=== PATIENT | female | born 2000 | race Caucasian/White ===

== ENCOUNTER → 2022-07-03 10:46 | Outpatient (CLI) | payer BC, SELFPAY ==
--- NOTE | ~2022-07-03 | DEXA_ITS ---
Bone Density Report Name: PETERSON GONZALEZ Age: 21 Sex: Female Ethnicity: Pediatric Date of : 2000 Indication: Encounter for surveillance of injectable contraceptive. Referring Provider: Loni Valadez Study: Bone densitometry was performed. Exam Date: July 03, 2022 Accession number: [id number] Bone Density: Region BMD T-score Z-score Classification AP Spine (L1-L4) 1.104 0.9 Normal World Health Organization criteria for BMD impression classify patients as: Normal (T-score at or above -1.0), Osteopenia (T-score between -1.0 and -2.5), or Osteoporosis (T-score at or below -2.5). Previous Exams: Region Exam Age BMD T-score BMD Change BMD Change Date g/cm2 vs Baseline vs Previous AP Spine(L1-L4) 07/03/2022 21 1.104 0.9 -0.043* -0.025* 06/02/2019 18 1.129 -0.018 -0.018 04/25/2017 16 1.147 *Denotes significance at 95% confidence level, LSC for AP Spine = 0.022 g/cm2 Clinical Information Provided by Patient: Has rheumatoid arthritis Patient maximum height was 61 No regular weight bearing exercise Drinks caffeinated beverages Onset of menses at age 12 Premenopausal Number of children 0 Missed period for more than 6 months in a row Impression: Discussion: Follow-Up: Reported by: JEZ on 07/03/2022 11:06:00 AM. Reviewed, dictated and finalized at location Ariela SCHULTZ
== END ==
PROVIDERS: PCP Advanced Practice Midwife; Visit Provider Advanced Practice Midwife
DX: Z30.42 Encounter for surveillance of injectable contraceptive (principal)
CPT/HCPCS: 77080

== ENCOUNTER 2024-03-12 10:53 | Inpatient (IN) | payer BC, SELFPAY ==
[2024-03-12] VITALS (16 sets, daily range): BP systolic 94–138; BP diastolic 52–83; PULSE 78–125; RESP 14–19; TEMP 36.2–37.1; O2SAT 98–100
--- NOTE | ~2024-03-12 | CT_ITS ---
EXAMINATION: CT abdomen pelvis w con DATE: 03/12/2024 13:09 INDICATION: Right upper quadrant abdominal pain. Right flank pain. TECHNIQUE: Computed tomography (CT) of the abdomen and pelvis was performed without intravenous contr ast. Automated exposure control and iterative reconstruction technique were employed. The dose-length product was 267.20 mGy-cm. COMPARISON: None FINDINGS: Lung bases are clear. Heart size is normal. No pericardial or pleural effusion. Liver, gallbladder, s pleen, pancreas, bilateral adrenal glands and left kidney are normal. 3 mm stone at the proximal righ t ureter with mild right hydronephrosis. Decompressed bladder, anteverted uterus and bilateral adnexa are normal. Bowels including the appendix are normal. No free intraperitoneal gas or fluid. No patho logically enlarged abdominal or pelvic lymphadenopathy. Bones are unremarkable. IMPRESSION: 1. 3 mm possible right ureteral stone with mild right hydronephrosis. Reviewed, dictated and finalized at location A.
--- NOTE | ~2024-03-12 | XR_ITS ---
EXAMINATION: XR retrograde pyelo w/stent RT DATE: 03/12/2024 16:38 INDICATION: Right ureteral stone. TECHNIQUE: 42 intraoperative fluoroscopic views of the abdomen and pelvis were obtained. I was not pr esent. Fluoroscopy exposure time was 25 seconds. COMPARISON: CT abdomen and pelvis 03/12/2024 FINDINGS: The right-sided retrograde pyelogram demonstrates mild right hydronephrosis. The final imag es demonstrate a right internal ureteral stent in expected position. IMPRESSION: 1. Right internal ureteral stent in expected position. Reviewed, dictated and finalized at location A.
--- NOTE | 2024-03-12 12:18 | ED.ABDPAIN ---
HPI - Abdominal Pain General Chief Complaint: Abdominal Pain <SOHAN Green Last Filed: 03/12/24 12:22> Stated Complaint: right abd pain <SOHAN Green Last Filed: 03/12/24 12:22> Time Seen by Provider: 03/12/24 12:18 <SOHAN Green Last Filed: 03/12/24 12:22> Focused HPI: This is a 23-year-old female who presents to the ED with chief complaint of right upper quadrant right flank pain beginning last night. States that the pain worsened today. She works at a doctor's office and they recommended she come and get her gallbladder checked out. States that she has had nausea with a couple episodes of vomiting. Denies recent antibiotic use. Denies urinary symptoms, fevers, chills. GENERAL: Well-appearing, well-nourished, and in no acute distress. HEAD: Normocephalic, atraumatic. CHEST: Clear to auscultation. No respiratory distress. HEART: Regular rate and rhythm. ABD: Right flank pain and right upper quadrant tenderness appreciated, worse on the right flank. No peritoneal signs NEURO: Alert and oriented x3. Patient screened in triage and initial orders placed. Additional care and disposition to be based upon diagnostic testing and treatment. <SOHAN Green Last Filed: 03/12/24 12:22> Source: patient <SOHAN Green Last Filed: 03/12/24 12:22> Mode of arrival: ambulatory <SOHAN Green Last Filed: 03/12/24 12:22> Limitations: no limitations <SOHAN Green Last Filed: 03/12/24 12:22> Related Data Home Medications: Home Medications Medication Instructions Recorded Confirmed medroxyprogesterone 150 mg/mL 150 mg IM WEEKLY 03/12/24 03/12/24 intramuscular suspension <SOHAN Green Last Filed: 03/12/24 12:22> Allergies/Adverse Reactions: Allergies Allergy/AdvReac Type Severity Reaction Status Date / Time acetaminophen Allergy Swelling Verified 03/12/24 13:29 of Lip/Tongue/Throat azithromycin Allergy Swelling Verified 03/12/24 13:29 of Lip/Tongue/Throat hydrochlorothiazide Allergy Swelling Verified 03/12/24 13:29 of Lip/Tongue/Throat moxifloxacin [From Avelox] Allergy Swelling Verified 03/12/24 13:29 of Lip/Tongue/Throat oseltamivir [From Tamiflu] Allergy Swelling Verified 03/12/24 13:29 of Lip/Tongue/Throat Penicillins Allergy Swelling Verified 03/12/24 13:29 of Lip/Tongue/Throat <Lionel Cummings PA-C - Last Filed: 03/12/24 12:22> Review of Systems Review of Systems: All systems reviewed & are unremarkable except as noted in HPI and below <Lisandra Olivas MD - Last Filed: 03/12/24 19:49> [facility] Social History Social History: Social History Smoking packs per day: 0 Smoking cigarettes per day: 0.0 Smoking status: Current some day smoker Tobacco type: e-cigarettes/vaping Alcohol intake: current Drinks per week: 2 Substance use: never Do You Feel Safe in your Home?: Yes Lack of Transportation: No Lack of Food: Never True Current Housing: I Have Housing Concerned About Future Housing: No Difficulty Paying Gas/Electric Bills: No Difficulty Paying for Meds: No Currently Unemployed: No Education: Bachelor's Degree Difficulty w/ Childcare or Family Care: No Spiritual care concerns: No <Lionel Cummings PA-C - Last Filed: 03/12/24 12:22> Exam Narrative: EXAMINATION OF ORGAN SYSTEMS/BODY AREAS: Constitutional: Vital signs per nursing GENERAL:[No acute distress, non-toxic appearing.] HEAD: Normal with no signs of head trauma. EYES: EOMI, conjunctiva normal ENT: Hearing grossly intact LUNGS: Nonlabored breathing. HEART: Tachycardic ABD: Right CVA tenderness EXT: Normal range of motion SKIN: [No rashes or lesions.] NEURO: [Alert and oriented x 3. No gross focal sensory or strength deficits.] PSYCH: Normal affect <Lisandra Gray
[2024-03-12 12:34] LABS: BEDSIDEPREGUCG Negative
[2024-03-12 12:44] LABS: Basophils Percent Auto 0.2 % (0.2-1.2); Eosinophils Percent Auto 0.1 % (0-4.4); Hematocrit 45.8 % (37.0-47.0); Hemoglobin 15.4 g/dL (12.0-15.0); Immature Granulocyte Absolute 0.06 K/mm3 (0.00-0.031); Immature Granulocyte Percent A 0.3 % (0-0.5); Lymphocytes Absolute Auto 0.79 K/mm3 (0.9-3.2); Lymphocytes Percent Auto 4.6 % (18.3-44.2); Mean Corpuscular HGB Conc 33.6 g/dl (32-36); Mean Corpuscular Hemoglobin 30.3 pg (26-34); Mean Corpuscular Volume 90.2 fl (80-100); Mean Platelet Volume 9.7 fl (7.4-10.4); Monocytes Absolute Auto 0.3 K/mm3 (0.1-0.6); Monocytes Percent Auto 1.7 % (2.6-8.5); Neutrophils Percent Auto 93.1 % (45.5-73.1); Platelet Count Result 326 k/mm3 (150-375); Red Blood Count 5.08 M/mm3 (4.2-5.4); Red Cell Distribution Width 12.2 % (11.5-14.5); White Blood Count 17.2 K/mm3 (4.5-10.0)
[2024-03-12 12:50] LABS: Add Urine Microscopic? YES; Appearance Urine Cloudy (Clear); Bacteria Urine 4+ /hpf; Bilirubin Urine Negative (Negative); Blood Urine 1+ (Negative); Color Urine Yellow (Yellow); Glucose Urine UA Negative (Negative); Ketones Urine Negative (Negative); Leukocyte Esterase Ur 3+ LEU/UL (Negative); Nitrate Urine Positive (Negative); Non Pathogenic Casts 0-2; Protein Urine Negative (Negative); Specific Grav Ur 1.014 (1.001-1.035); Squamous Epithelial Cell Urine None Seen /hpf (Few); WBC Urine 51-100 /hpf (0-3); pH Urine 7.5 (5.0-9.0)
[2024-03-12 12:55] LABS: Alanine Aminotransferase 17 U/L (6-35); Albumin Level 5.1 g/dL (3.5-5.1); Alkaline Phosphatase 77 U/L (38-126); Anion Gap 15 mmol/L (4-12); Aspartate Amino Transferase 30 U/L (14-36); Bilirubin,Total 0.7 mg/dL (0.2-1.3); Blood Urea Nitrogen 10 mg/dL (7-17); Calcium 9.5 mg/dL (8.4-10.2); Carbon Dioxide 23 mmol/L (22-30); Chloride 101 mmol/L (98-107); Estimated CRCL calculation 72 ml/min; Estimated Glomerular Filt Rate > 60; Glucose 83 mg/dL (65-110); Lipase 27 U/L (23-300); Potassium 3.8 mmol/L (3.4-5.0); Sodium 139 mmol/L (137-145)
--- NOTE | 2024-03-12 14:12 | WPDURCON ---
Assessment and Plan Assessment and plan (1) Right ureteral stone: Code(s): N20.1 - Calculus of ureter Status: Acute Assessment and Plan: 3 mm right ureteral stone with moderate hydronephrosis. Will plan for cystoscopy with right ureteral stent placement this afternoon with Dr. Lozoya. Discussed risks versus benefits of procedure inpatient agreeable to proceed. Understands temporary nature of stent and need for definitive stone management at a later date. Continue NPO diet. (2) Urinary tract infection: Code(s): N39.0 - Urinary tract infection, site not specified Status: Acute Assessment and Plan: Repeat UA grossly abnormal, concerning for UTI. Urine culture is pending at this time. Continue IV ceftriaxone while awaiting culture results. Urology Consult Note HPI Date Seen: 03/12/24 Primary Care Provider: UNKNOWN,DOCTOR Consult Narrative Narrative: Melanie Arteaga is a 23 year old female with no prior urologic history who is being seen in consultation for right ureteral stone. She presented to the ER this afternoon after onset right low back pain last night. Reports and of 10 pain in her low back with associated nausea and vomiting. Denies fever, chills, dysuria, hematuria. Denies any history of prior stones or other urologic issues. On arrival to the ER, she was mildly tachycardic, afebrile, additional vital signs stable, WBC elevated at 17.2, creatinine 0.8, UA grossly abnormal with positive nitrates, leukocytes, blood. A urine culture is pending at this time. A CT of her abdomen/pelvis was completed which shows a 3 mm possible right ureteral stone with mild right hydronephrosis. At the time of my evaluation, the patient is resting comfortably. Discussed plans for cystoscopy with right ureteral stent placement this afternoon and she is agreeable. Review of Systems Review of Systems: All systems reviewed & are unremarkable except as noted in HPI and below Meds Home Medications and Allergies Allergies Allergy/AdvReac Type Severity Reaction Status Date / Time acetaminophen Allergy Swelling Verified 03/12/24 13:29 of Lip/Tongue/Throat azithromycin Allergy Swelling Verified 03/12/24 13:29 of Lip/Tongue/Throat hydrochlorothiazide Allergy Swelling Verified 03/12/24 13:29 of Lip/Tongue/Throat moxifloxacin [From Avelox] Allergy Swelling Verified 03/12/24 13:29 of Lip/Tongue/Throat oseltamivir [From Tamiflu] Allergy Swelling Verified 03/12/24 13:29 of Lip/Tongue/Throat Penicillins Allergy Swelling Verified 03/12/24 13:29 of Lip/Tongue/Throat Vital Signs Vital Signs - 24 hr 03/12/24 10:56 Temperature 97.9 F Pulse Rate 114 H Respiratory Rate 16 Blood Pressure 138/82 Pulse Oximetry 100 Oxygen Delivery Room Air Exam Narrative: General: Awake, alert, comfortable, no acute distress HEENT: Normocephalic, atraumatic, sclerae anicteric Respiratory: Normal respiratory effort, no accessory muscle use Abdomen: Nondistended, soft, nontender Skin: Normal coloration, warm and dry Neurologic: No focal neuro deficits noted Psychiatric: Appropriate mood and affect, judgment and insight intact Results Labs 03/12/24 12:34 03/12/24 12:34 Labs: Short CBC 03/12/24 Range/Units 12:34 WBC 17.2 H (4.5-10.0) K/mm3 Hgb 15.4 H (12.0-15.0) g/dL Hct 45.8 (37.0-47.0) % Plt Count 326 (150-375) k/mm3 BMP 03/12/24 12:34 Sodium 139 Potassium 3.8 Chloride 101 Carbon Dioxide 23 BUN 10 Creatinine 0.80 Glucose 83 Calcium 9.5 Liver Function 03/12/24 Range/Units 12:34 Total Bilirubin 0.7 (0.2-1.3) mg/dL AST 30 (14-36) U/L ALT 17 (6-35) U/L Alkaline Phosphatase 77 (38-126) U/L Albumin 5.1 (3.5-5.1) g/dL Urine 03/12/24 Range/Units 12:34 Urine Color Yellow (Yellow) Urine Appearance Cloudy H (
[2024-03-12] MEDS: SODIUM CHLORIDE 0.9% IV 1,000 ML 999 ML IV CONT (14:19)
--- NOTE | 2024-03-12 14:27 | W.PM.PROC2 ---
Procedure Note - Detailed Date of Procedure 03/12/24 Pre-op Diagnosis Gross hematuria with bladder clots Post-op Diagnosis Same Procedure Performed Cystoscopy with clot evacuation Surgeon Asif Lozoya MD Anesthesia General Description of Procedure patient is brought to the op suite was prepped draped in routine sterile fashion while in dorsal lithotomy position a 2% xylocaine jelly was introduced intraurethrally and general anesthesia is administered per the anesthesia department. Cystoscopy was undertaken the 19 F rigid cystoscope. Urethra was normal. He has recent removal of his prostate I can see stitches at the anastomosis. The bladder neck appears to be healing nicely. There does appear to be a small, somewhat diverticular like area in the posterior bladder neck. The bladder itself was endoscopically normal without foreign body or neoplasm. With a moderate clot which was easily evacuated through this 19 F catheter. At this point I replaced a [address] catheter over a wire and resume CBI. The patient tolerated the procedure well Drains No Packing No Pathology None sent Complications No immediate complications Condition Stable
--- NOTE | 2024-03-12 16:00 | WPDHPUPDATE1 ---
History and Physical Update Update Date/Time: 03/12/24 16:00 History and Physical has been reviewed, including an updated exam of the patient. There are NO changes in the patient's condition. Risks, benefits, and alternatives have been discussed and questions answered. Patient agrees to proceed with procedure.
--- NOTE | 2024-03-12 16:00 | WPDANESEPPF ---
Anes - Initial Pre Proc Eval Procedure: Operation Date: 03/12/24 17:00 Proposed Procedures p Cystoscopy,Right Stent Placement,Right Retrograde Pyelogram - Asif Lozoya MD Date/Time: 03/12/24 16:00 Pre Op Diagnosis: Infected Stone Patient Data Age: 23 Gender: F Height: 1.55 m Weight: 61.4 kg Last Vital Signs Temp 36.6 C 03/12/24 10:56 Pulse 105 H 03/12/24 15:00 Resp 19 03/12/24 15:00 BP 123/78 03/12/24 15:00 Pulse Ox 99 03/12/24 15:00 O2 Del Method Room Air 03/12/24 10:56 Allergies Allergy/AdvReac Type Severity Reaction Status Date / Time acetaminophen Allergy Swelling Verified 03/12/24 13:29 of Lip/Tongue/Throat azithromycin Allergy Swelling Verified 03/12/24 13:29 of Lip/Tongue/Throat hydrochlorothiazide Allergy Swelling Verified 03/12/24 13:29 of Lip/Tongue/Throat moxifloxacin [From Avelox] Allergy Swelling Verified 03/12/24 13:29 of Lip/Tongue/Throat oseltamivir [From Tamiflu] Allergy Swelling Verified 03/12/24 13:29 of Lip/Tongue/Throat Penicillins Allergy Swelling Verified 03/12/24 13:29 of Lip/Tongue/Throat Laboratory Tests 03/12/24 03/12/24 12:32 12:34 WBC 17.2 H K/mm3 (4.5-10.0) RBC 5.08 M/mm3 (4.2-5.4) Hgb 15.4 H g/dL (12.0-15.0) Hct 45.8 % (37.0-47.0) MCV 90.2 fl (80-100) MCH 30.3 pg (26-34) MCHC 33.6 g/dl (32-36) RDW 12.2 % (11.5-14.5) Plt Count 326 k/mm3 (150-375) MPV 9.7 fl (7.4-10.4) Immature Gran % (Auto) 0.3 % (0-0.5) Neut % (Auto) 93.1 H % (45.5-73.1) Lymph % (Auto) 4.6 L % (18.3-44.2) [place] % (Auto) 1.7 L % (2.6-8.5) Eos % (Auto) 0.1 % (0-4.4) Baso % (Auto) 0.2 % (0.2-1.2) Lymph # (Auto) 0.79 L K/mm3 (0.9-3.2) [place] # (Auto) 0.3 K/mm3 (0.1-0.6) Eos # (Auto) 0.0 K/mm3 (0-0.3) Baso # (Auto) 0.0 K/mm3 (0.0-0.1) Abs Immat Gran (auto) 0.06 H K/mm3 (0.00-0.031) Absolute Neuts (auto) 16.0 H K/mm3 (1.3-6.7) Absolute Nucleated RBC 0.000 K/mm3 (0.0-0.012) Nucleated RBC % 0.0 % (0.0-0.2) Sodium 139 mmol/L (137-145) Potassium 3.8 mmol/L (3.4-5.0) Chloride 101 mmol/L (98-107) Carbon Dioxide 23 mmol/L (22-30) Anion Gap 15 H mmol/L (4-12) BUN 10 mg/dL (7-17) Creatinine 0.80 mg/dL (0.7-1.0) Estim Creat Clear Calc 72 ml/min Estimated GFR > 60 (59 - ) Glucose 83 mg/dL (65-110) Calcium 9.5 mg/dL (8.4-10.2) Total Bilirubin 0.7 mg/dL (0.2-1.3) AST 30 U/L (14-36) ALT 17 U/L (6-35) Alkaline Phosphatase 77 U/L (38-126) Total Protein 9.0 H g/dL (6.3-8.2) Albumin 5.1 g/dL (3.5-5.1) Lipase 27 U/L (23-300) Urine Color Yellow (Yellow) Urine Appearance Cloudy H (Clear) Urine pH 7.5 (5.0-9.0) Ur Specific [place] 1.014 (1.001-1.035) Urine Protein Negative mg/dL (Negative) Urine Glucose (UA) Negative mg/dL (Negative) Urine Ketones Negative mg/dL (Negative) Ur Blood (Man) 1+ H (Negative) Urine Nitrate Positive H (Negative) Urine Bilirubin Negative (Negative) Urine Urobilinogen 1.0 mg/dL (<2.0) Leukocyte Esterase Rfl 3+ H STEVE/UL (Negative) Urine RBC 6-10 H /hpf (0-2) Urine WBC 51-100 H /hpf (0-3) Ur Squamous Epith Cells None seen /hpf (Few) Urine Bacteria 4+ H /hpf Urine Casts 0-2 POC Urine HCG, Qual Negative Patient hx anesthesia problems: none Family hx anesthesia problems: none Results Review: All pre-operative results and documents have been reviewed as part of the pre-operative evaluation. Anes - Eval Final PreProcedure Day of Procedure 03/12/24 16:00 Patient weight:
[2024-03-12] MEDS: LACTATED RINGERS 1,000 ML 30 ML IV CONT ×2 (16:05→17:11)
[2024-03-12] MEDS: LIDOCAINE HCL 2% GEL UROJET 10 ML PKG MUCOUS MEM (16:17)
--- NOTE | 2024-03-12 16:43 | P.OP_ITS ---
Procedure Note - Detailed Date of Procedure 03/12/24 Pre-op Diagnosis Small right proximal ureteral stone and obstructive pyelonephritis Post-op Diagnosis Same Procedure Performed Cystoscopy, right retrograde pyelography, right ureteral stent placement Surgeon Asif Lozoya MD Anesthesia General Description of Procedure Patient is brought to the operative suite where she was prepped draped in routine sterile fashion while in dorsal lithotomy position after the uneventful induction of a general LMA anesthetic. Cystoscopy was undertaken with a 19 F rigid cystoscope. Bladder neck and urethra endoscopically normal. Bladder mucosa was normal. There was no intravesical foreign body neoplasm. She has a single orthotopic ureteral orifice bilaterally. The 0.035 in guidewire was advanced to the renal pelvis under fluoroscopy and an open-ended ureteral catheter was placed. Retrograde pyelography was obtained on the right to outline the collecting system and ensure appropriate positioning a 4.8 F double- J ureteral stent. The proximal coil was positioned in an upper pole calyx and distal coil in the bladder. The bladder was emptied. The patient was taken recovery room good condition. Estimated Blood Loss 0 Drains Yes Packing No Pathology Yes Complications No immediate complications Condition Stable Disposition PACU
--- NOTE | 2024-03-12 18:05 | ADMGEN ---
This patient, Melanie Arteaga, was admitted to 3 [facility] Surg Room 312-01. Patient/family oriented to hospital policies and general routines including ID bracelet, bed and alarms, visiting hours, pain management, procedures, bathroom and other care routines, personal items, smoking policy, room service/diet, and visiting hours. Information on how to activate the Rapid Response Team has been discussed. Patient/Family are encouraged to report perceived risks to care and to ask questions if they do not understand what they are told or what they should do.
[2024-03-12] MEDS: TAMSULOSIN HCL 0.4 MG CAPSULE PO (20:15)
[2024-03-12] MEDS: oxyCODONE HCL (*CRX) 5 MG TAB IR PO (20:19)
--- NOTE | 2024-03-12 21:52 | PM.IMHP ---
H&P: HPI History of Present Illness Date/Time: 03/12/24 21:52 Chief Complaint: Flank Pain Narrative: 23 y/o F presents here with flank pain and abdominal pain with no significant PMH. The patient presents here from home for further evaluation of right-sided abdominal pain and right-sided flank pain. The patient reports onset of right-sided flank began last night and RLQ abdominal pain started this morning. She describes the pain as sharp/stabbing, nonradiating, constant flank pain, intermittent abdominal pain, and no aggravating/alleviating factors. Pain is accompanied by nausea with a few episodes of emesis, nonbloody. Denies associated diarrhea, dysuria, hematuria, urinary frequency, fever, chills, body aches, or constipation. Denies previous history of abdominal surgeries or kidney stones. Initial VS at presentation: 97.9? F, HR 114, RR 16, 138/82, and 100% on RA ED workup showed: WBC 17.2, hemoglobin 15.4, creatinine 0.8 and GFR >60, UA consistent with UTI. CT of the abdomen/pelvis showed a 3 mm possible right ureteral stone with mild right hydronephrosis. Review of Systems Review of Systems: All systems reviewed & are unremarkable except as noted in HPI and below PMFSH Social History Social History Smoking packs per day: 0 Smoking cigarettes per day: 0.0 Smoking status: Current some day smoker Tobacco type: e-cigarettes/vaping Alcohol intake: current Drinks per week: 2 Substance use: never Do You Feel Safe in your Home?: Yes Lack of Transportation: No Lack of Food: Never True Current Housing: I Have Housing Concerned About Future Housing: No Difficulty Paying Gas/Electric Bills: No Difficulty Paying for Meds: No Currently Unemployed: No Education: Bachelor's Degree Difficulty w/ Childcare or Family Care: No Spiritual care concerns: No Meds Home Medications and Allergies Home Medications Medication Instructions Recorded Confirmed Type medroxyprogesterone 150 mg/mL 150 mg IM WEEKLY 03/12/24 03/12/24 History intramuscular suspension Allergies Allergy/AdvReac Type Severity Reaction Status Date / Time acetaminophen Allergy Swelling Verified 03/12/24 13:29 of Lip/Tongue/Throat azithromycin Allergy Swelling Verified 03/12/24 13:29 of Lip/Tongue/Throat hydrochlorothiazide Allergy Swelling Verified 03/12/24 13:29 of Lip/Tongue/Throat moxifloxacin [From Avelox] Allergy Swelling Verified 03/12/24 13:29 of Lip/Tongue/Throat oseltamivir [From Tamiflu] Allergy Swelling Verified 03/12/24 13:29 of Lip/Tongue/Throat Penicillins Allergy Swelling Verified 03/12/24 13:29 of Lip/Tongue/Throat Vital Signs Vital Signs - 24 hr 03/12/24 10:56 03/12/24 13:16 03/12/24 13:17 Temperature 97.9 F Pulse Rate 114 H 107 H Respiratory Rate 16 14 Blood Pressure 138/82 126/83 Pulse Oximetry 100 100 100 Oxygen Delivery Room Air Oxygen Flow Rate 03/12/24 14:00 03/12/24 14:15 03/12/24 15:00 Temperature Pulse Rate 125 H 115 H 105 H Respiratory Rate 19 19 19 Blood Pressure 117/76 122/80 123/78 Pulse Oximetry 100 100 99 Oxygen Delivery Oxygen Flow Rate 03/12/24 16:10 03/12/24 16:41 03/12/24 16:55 Temperature 97.1 F L 98.0 F Pulse Rate 114 H 86 78 Respiratory Rate 16 15 14 Blood Pressure 120/74 98/53 L 94/52 L Pulse Oximetry 99 100 100 Oxygen Delivery Room Air Simple Face Mask Simple Face Mask Oxygen Flow Rate 8 8 03/12/24 17:10 03/12/24 17:25 03/12/24 17:40 Temperature Pulse Rate 105 H 87 85 Respiratory Rate 16 18 18 Blood Pressure 109/75 109/74 111/68 Pulse Oximetry 100 100 100 Oxygen Delivery Room Air Room Air Room Air Oxygen Flow Rate 03/12/24 16:18 03/12/24 18:44 03/12/24 20:22 Temperature 97.9 F 98.7 F Pulse Rate 101 H 98 Respiratory Rate 14 16 Blood Pressure 122/70 119/69 Pulse Oximetry
[2024-03-12] MEDS: LACTATED RINGERS 1,000 ML 999 ML IV CONT (22:16)
[2024-03-12 23:18] LABS: Procalcitonin 1.2 ng/mL
[2024-03-13] MEDS: LACTATED RINGERS 1,000 ML 75 ML IV CONT (00:24)
[2024-03-13 04:00] VITALS: BP 110/51; PULSE 111; RESP 14; TEMP 37.2; O2SAT 99
[2024-03-13 07:05] LABS: Basophils Percent Auto 0.1 % (0.2-1.2); Hematocrit 34.5 % (37.0-47.0); Hemoglobin 11.6 g/dL (12.0-15.0); Immature Granulocyte Absolute 0.03 K/mm3 (0.00-0.031); Immature Granulocyte Percent A 0.3 % (0-0.5); Lymphocytes Absolute Auto 0.84 K/mm3 (0.9-3.2); Lymphocytes Percent Auto 9.5 % (18.3-44.2); Mean Corpuscular HGB Conc 33.6 g/dl (32-36); Mean Corpuscular Hemoglobin 30.1 pg (26-34); Mean Corpuscular Volume 89.4 fl (80-100); Monocytes Absolute Auto 0.6 K/mm3 (0.1-0.6); Monocytes Percent Auto 6.4 % (2.6-8.5); Neutrophils Absolute Auto 7.4 K/mm3 (1.3-6.7); Neutrophils Percent Auto 83.7 % (45.5-73.1); Platelet Count Result 241 k/mm3 (150-375); Red Blood Count 3.86 M/mm3 (4.2-5.4); Red Cell Distribution Width 12.4 % (11.5-14.5); White Blood Count 8.9 K/mm3 (4.5-10.0)
[2024-03-13 07:26] LABS: Anion Gap 7 mmol/L (4-12); Blood Urea Nitrogen 5 mg/dL (7-17); Calcium 8.7 mg/dL (8.4-10.2); Carbon Dioxide 24 mmol/L (22-30); Chloride 107 mmol/L (98-107); Estimated CRCL calculation 94 ml/min; Estimated Glomerular Filt Rate > 60; Glucose 90 mg/dL (65-110); Potassium 3.7 mmol/L (3.4-5.0); Sodium 138 mmol/L (137-145)
[2024-03-13 08:00] VITALS: BP 110/61; PULSE 91; RESP 16; TEMP 36.5; O2SAT 99
--- NOTE | 2024-03-13 08:08 | WPDUROPN2 ---
Progress Note: A&P Assessment and Plan (1) Right ureteral stone: Code(s): N20.1 - Calculus of ureter Status: Acute (2) Urinary tract infection: Qualifiers: Hematuria presence: without hematuria Urinary tract infection type: acute cystitis Qualified Code(s): N30.00 - Acute cystitis without hematuria Code(s): N39.0 - Urinary tract infection, site not specified Status: Acute Assessment and Plan: Comfortable and serum WBC much improved. I will plan repeat CT-abd/pelvis wo contrast in 1-week to see if stone has passed: - if passed: stent out in office - if not passed: right ureteroscopy with stone extraction (outpatient surgery) Home on oral abx. x10 days when culture available Subjective Subjective Date/Time Seen: 03/13/24 08:08 Interval history: Comfortable, tolerating stent Review of Systems Review of Systems: All systems reviewed & are unremarkable except as noted in HPI and below Exam Const: General: no acute distress Resp: Effort & Inspection: normal respiratory effort GI: Inspection: non-distended GI Palp: No abdominal tenderness and No Guarding due to palpation present (GI) Auscultation: normal bowel sounds Objective Data Vital Signs Vital Signs: Vital Signs - 24 hr 03/12/24 10:56 03/12/24 13:16 03/12/24 13:17 Temperature 97.9 F Pulse Rate 114 H 107 H Respiratory Rate 16 14 Blood Pressure 138/82 126/83 Pulse Oximetry 100 100 100 Oxygen Delivery Room Air Oxygen Flow Rate 03/12/24 14:00 03/12/24 14:15 03/12/24 15:00 Temperature Pulse Rate 125 H 115 H 105 H Respiratory Rate 19 19 19 Blood Pressure 117/76 122/80 123/78 Pulse Oximetry 100 100 99 Oxygen Delivery Oxygen Flow Rate 03/12/24 16:10 03/12/24 16:41 03/12/24 16:55 Temperature 97.1 F L 98.0 F Pulse Rate 114 H 86 78 Respiratory Rate 16 15 14 Blood Pressure 120/74 98/53 L 94/52 L Pulse Oximetry 99 100 100 Oxygen Delivery Room Air Simple Face Mask Simple Face Mask Oxygen Flow Rate 8 8 03/12/24 17:10 03/12/24 17:25 03/12/24 17:40 Temperature Pulse Rate 105 H 87 85 Respiratory Rate 16 18 18 Blood Pressure 109/75 109/74 111/68 Pulse Oximetry 100 100 100 Oxygen Delivery Room Air Room Air Room Air Oxygen Flow Rate 03/12/24 16:18 03/12/24 18:44 03/12/24 20:22 Temperature 97.9 F 98.7 F Pulse Rate 101 H 98 Respiratory Rate 14 16 Blood Pressure 122/70 119/69 Pulse Oximetry 100 100 Oxygen Delivery Room Air Oxygen Flow Rate 03/12/24 23:41 03/12/24 21:13 03/13/24 04:00 Temperature 98.4 F 99.0 F Pulse Rate 106 H 111 H Respiratory Rate 16 14 Blood Pressure 116/70 110/51 L Pulse Oximetry 98 99 99 Oxygen Delivery Room Air Oxygen Flow Rate Intake/Output Intake/Output: Intake & Output 03/10/24 03/11/24 03/12/24 03/13/24 23:59 23:59 23:59 23:59 Intake Total 2750 400 Balance 2750 400 Meds/Results Medications: Active Medications Generic Name Dose Route Start Last Admin Trade Name Freq PRN Reason Stop Dose Admin Hydromorphone HCl 0.25 mg 03/12/24 18:38 Hydromorphone Hcl Inj (*Crx) 1 Mg/Ml Syr IV PUSH Q3H PRN Pain Rated 7-10 Ceftriaxone Sodium 1 gm in 50 mls @ 100 mls/hr 03/13/24 12:00 Rocephin 1 Gm/Ns 50 Ml IVPB Q24H IVONE Lactated Ringer's 1,000 mls @ 75 mls/hr 03/12/24 23:30 03/13/24 00:24 Lr - Lactated Ringers Iv IV CONT 75 mls/hr .[id number] IVONE Administration Ketorolac Tromethamine 15 mg 03/12/24 22:57 Ketorolac 15 Mg/Ml Vial (*Bkc) IV PUSH Q6H PRN Pain Rated 4-6 and Fever Oxycodone HCl 5 mg 03/12/24 18:37 03/12/24 20:19 Oxycodone Hcl (*Crx) 5 Mg Tab Ir PO 5 mg Q4H PRN Administration Pain Rated 7-10 Phenazopyridine HCl 100 mg 03/12/24 18:32 Phenazopyridine Hcl 100 Mg Tablet PO Q8HR PRN Mild Pain (1-3) Tamsulosin HCl 0.4 mg 03/12/24 21:00 03/12/24 20:15 Tamsulosin Hcl 0.4 Mg Capsule PO 0.4 mg QHS IVONE
[2024-03-13 08:10] VITALS: O2SAT 98
[2024-03-13 09:14] LABS: Procalcitonin 1.2 ng/mL
[2024-03-13] MEDS: oxyCODONE HCL (*CRX) 5 MG TAB IR PO ×2 (09:33→17:07)
--- NOTE | 2024-03-13 10:31 | WPDANESPN ---
Anes - Prog Note Post-Op Date/Time: 03/13/24 10:31 Cardiovascular status: normal Respiratory status: normal Airway patency: baseline Mental status: baseline Post-Op hydration status: normal Vital Signs: Last Vital Signs Temp 36.5 C 03/13/24 08:00 Pulse 91 03/13/24 08:00 Resp 16 03/13/24 08:00 BP 110/61 03/13/24 08:00 Pulse Ox 98 03/13/24 08:10 O2 Del Method Room Air 03/13/24 09:30 O2 Flow Rate 8 03/12/24 16:55 FiO2 21 03/13/24 08:10 Pain Score (VAS): 0/10 I/O: Intake & Output 03/12/24 03/13/24 03/13/24 23:59 07:59 15:59 Intake Total 1700 400 Balance 1700 400 Laboratory Tests 03/13/24 06:24 03/13/24 06:24 03/12/24 03/12/24 03/12/24 12:32 12:34 22:17 WBC 17.2 H RBC 5.08 Hgb 15.4 H Hct 45.8 MCV 90.2 MCH 30.3 MCHC 33.6 RDW 12.2 Plt Count 326 MPV 9.7 Immature Gran % (Auto) 0.3 Neut % (Auto) 93.1 H Lymph % (Auto) 4.6 L [place] % (Auto) 1.7 L Eos % (Auto) 0.1 Baso % (Auto) 0.2 Lymph # (Auto) 0.79 L [place] # (Auto) 0.3 Eos # (Auto) 0.0 Baso # (Auto) 0.0 Abs Immat Gran (auto) 0.06 H Absolute Neuts (auto) 16.0 H Absolute Nucleated RBC 0.000 Nucleated RBC % 0.0 Sodium 139 Potassium 3.8 Chloride 101 Carbon Dioxide 23 Anion Gap 15 H BUN 10 Creatinine 0.80 Estim Creat Clear Calc 72 Estimated GFR > 60 Glucose 83 Calcium 9.5 Total Bilirubin 0.7 AST 30 ALT 17 Alkaline Phosphatase 77 Total Protein 9.0 H Albumin 5.1 Lipase 27 Procalcitonin 1.2 Urine Color Yellow Urine Appearance Cloudy H Urine pH 7.5 Ur Specific [place] 1.014 Urine Protein Negative Urine Glucose (UA) Negative Urine Ketones Negative Ur Blood (Man) 1+ H Urine Nitrate Positive H Urine Bilirubin Negative Urine Urobilinogen 1.0 Leukocyte Esterase Rfl 3+ H Urine RBC 6-10 H Urine WBC 51-100 H Ur Squamous Epith Cells None seen Urine Bacteria 4+ H Urine Casts 0-2 POC Urine HCG, Qual Negative 03/13/24 06:24 WBC 8.9 RBC 3.86 L Hgb 11.6 L D Hct 34.5 L MCV 89.4 MCH 30.1 MCHC 33.6 RDW 12.4 Plt Count 241 MPV 10.0 Immature Gran % (Auto) 0.3 Neut % (Auto) 83.7 H Lymph % (Auto) 9.5 L [place] % (Auto) 6.4 Eos % (Auto) 0.0 Baso % (Auto) 0.1 L Lymph # (Auto) 0.84 L [place] # (Auto) 0.6 Eos # (Auto) 0.0 Baso # (Auto) 0.0 Abs Immat Gran (auto) 0.03 Absolute Neuts (auto) 7.4 H Absolute Nucleated RBC 0.000 Nucleated RBC % 0.0 Sodium 138 Potassium 3.7 Chloride 107 Carbon Dioxide 24 Anion Gap 7 BUN 5 L D Creatinine 0.60 L Estim Creat Clear Calc 94 Estimated GFR > 60 Glucose 90 Calcium 8.7 Total Bilirubin AST ALT Alkaline Phosphatase Total Protein Albumin Lipase Procalcitonin 1.2 Urine Color Urine Appearance Urine pH Ur Specific [place] Urine Protein Urine Glucose (UA) Urine Ketones Ur Blood (Man) Urine Nitrate Urine Bilirubin Urine Urobilinogen Leukocyte Esterase Rfl Urine RBC Urine WBC Ur Squamous Epith Cells Urine Bacteria Urine Casts POC Urine HCG, Qual Post-procedural complaints: none Patient Feedback: Patient satisfied with anesthetic care.
[2024-03-13 11:44] VITALS: BP 107/72; PULSE 102; RESP 16; TEMP 36.7; O2SAT 100
[2024-03-13] MEDS: HYOSCYAMINE SULFATE 0.0625 MG TABLET PO (12:02)
--- NOTE | 2024-03-13 12:46 | PM.IMPN ---
Progress Note: A&P Assessment and Plan (1) Sepsis: Qualifiers: Sepsis type: sepsis due to unspecified organism Sepsis acute organ dysfunction status: without acute organ dysfunction Qualified Code(s): A41.9 - Sepsis, unspecified organism Code(s): A41.9 - Sepsis, unspecified organism Status: Acute (2) Right ureteral stone: Code(s): N20.1 - Calculus of ureter Status: Acute (3) Urinary tract infection: Qualifiers: Hematuria presence: without hematuria Urinary tract infection type: acute cystitis Qualified Code(s): N30.00 - Acute cystitis without hematuria Code(s): N39.0 - Urinary tract infection, site not specified Status: Acute Plan 23 y/o F presents here with flank pain and abdominal pain with no significant PMH. The patient presents here from home for further evaluation of right-sided abdominal pain and right-sided flank pain. The patient reports onset of right-sided flank began last night and RLQ abdominal pain started this morning. She describes the pain as sharp/stabbing, nonradiating, constant flank pain, intermittent abdominal pain, and no aggravating/alleviating factors. Pain is accompanied by nausea with a few episodes of emesis, nonbloody. Denies associated diarrhea, dysuria, hematuria, urinary frequency, fever, chills, body aches, or constipation. Denies previous history of abdominal surgeries or kidney stones. Initial VS at presentation: 97.9? F, HR 114, RR 16, 138/82, and 100% on RA ED workup showed: WBC 17.2, hemoglobin 15.4, creatinine 0.8 and GFR >60, UA consistent with UTI. CT of the abdomen/pelvis showed a 3 mm possible right ureteral stone with mild right hydronephrosis. # Sepsis: - meets SIRS criteria: HR, WBC. No hypotension or evidence of organ dysfunction. received ivf resuscitation likely source uti on ceftraixone cutluers pending. # Right ureteral stone: - CT showing a possible 3 mm right ureteral stone with mild right hydronephrosis - urology consulted, provided the following recs: Underwent cystoscopy and right ureteral stent placed Will need definitive stone management at later date - diet resumed post procedure # Urinary tract infection: - UA: Cloudy, 1+ blood, positive nitrates, 3+ leuks, 6-10 RBC, 51-100 WBC, 4+ bacteria, no epithelial cells - UC pending - previous micro reviewed, no previous available - started on Ceftriaxone on 03/12 # Diet: Regular # GI Prophylaxis: Not currently indicated # DVT Prophylaxis: Low risk # Lines: Peripheral # Code Status: Full code Subjective Date/time seen: 03/13/24 12:46 Interval history: feeling better, spasms with urination still present, no fever, chills, no blood in urine anymore Review of Systems Review of Systems: All systems reviewed & are unremarkable except as noted in HPI and below Exam Narrative: General: Awake, alert, comfortable, no acute distress HEENT: Normocephalic, atraumatic, sclerae anicteric Respiratory: Normal respiratory effort, no accessory muscle use Abdomen: Nondistended, soft, mild tenderness on right lumbar area Skin: Normal coloration, warm and dry Neurologic: No focal neuro deficits noted Psychiatric: Appropriate mood and affect, judgment and insight intact Objective Data Vital Signs Vital Signs: Vital Signs - 24 hr 03/12/24 13:16 03/12/24 13:17 03/12/24 14:00 Temperature Pulse Rate 107 H 125 H Respiratory Rate 14 19 Blood Pressure 126/83 117/76 Pulse Oximetry 100 100 100 Oxygen Delivery Oxygen Flow Rate Fraction of Inspired Oxygen 03/12/24 14:15 03/12/24 15:00 03/12/24 16:10 Temperature 97.1 F L Pulse Rate 115 H 105 H 114 H Respiratory Rate 19 19 16 Blood Pressure 122/80 123/78 120/74 Pulse Oximetry 100 99 99 Oxygen Delivery Room Air Oxygen Flow Rate Fraction of Inspired Oxygen 03/12/24 16:41 03/12/24 16:55 03/12/24 17:10 Temperature 98.0 F Pulse Rate 86 78 105 H Respir
[2024-03-13 16:00] VITALS: BP 121/72; PULSE 93; RESP 16; TEMP 36.5; O2SAT 98
[2024-03-13] MEDS: TAMSULOSIN HCL 0.4 MG CAPSULE PO (21:16)
[2024-03-13 21:52] VITALS: BP 117/64; PULSE 93; RESP 14; TEMP 36.6; O2SAT 98
[2024-03-14 06:00] VITALS: BP 111/64; PULSE 95; RESP 14; TEMP 36.8; O2SAT 96
[2024-03-14 06:03] LABS: Basophils Percent Auto 0.3 % (0.2-1.2); Eosinophils Absolute Auto 0.1 K/mm3 (0-0.3); Eosinophils Percent Auto 1.4 % (0-4.4); Hematocrit 36.7 % (37.0-47.0); Hemoglobin 12.3 g/dL (12.0-15.0); Immature Granulocyte Absolute 0.03 K/mm3 (0.00-0.031); Immature Granulocyte Percent A 0.5 % (0-0.5); Lymphocytes Percent Auto 26.7 % (18.3-44.2); Mean Corpuscular HGB Conc 33.5 g/dl (32-36); Mean Corpuscular Hemoglobin 30.1 pg (26-34); Mean Corpuscular Volume 89.7 fl (80-100); Mean Platelet Volume 9.8 fl (7.4-10.4); Monocytes Absolute Auto 0.7 K/mm3 (0.1-0.6); Monocytes Percent Auto 10.8 % (2.6-8.5); Neutrophils Absolute Auto 3.8 K/mm3 (1.3-6.7); Neutrophils Percent Auto 60.3 % (45.5-73.1); Platelet Count Result 228 k/mm3 (150-375); Red Blood Count 4.09 M/mm3 (4.2-5.4); Red Cell Distribution Width 12.3 % (11.5-14.5); White Blood Count 6.4 K/mm3 (4.5-10.0)
[2024-03-14 06:16] LABS: Alanine Aminotransferase 13 U/L (6-35); Albumin Level 3.8 g/dL (3.5-5.1); Alkaline Phosphatase 62 U/L (38-126); Anion Gap 11 mmol/L (4-12); Aspartate Amino Transferase 19 U/L (14-36); Bilirubin,Total 0.4 mg/dL (0.2-1.3); Blood Urea Nitrogen 6 mg/dL (7-17); Calcium 8.7 mg/dL (8.4-10.2); Carbon Dioxide 24 mmol/L (22-30); Chloride 102 mmol/L (98-107); Estimated CRCL calculation 82 ml/min; Estimated Glomerular Filt Rate > 60; Glucose 92 mg/dL (65-110); Magnesium 1.9 mg/dL (1.6-2.3); Potassium 3.5 mmol/L (3.4-5.0); Sodium 137 mmol/L (137-145)
[2024-03-14] MEDS: PHENAZOPYRIDINE HCL 100 MG TABLET PO (09:10)
--- NOTE | 2024-03-14 12:37 | WPDUROPN2 ---
Progress Note: A&P Assessment and Plan (1) Urinary tract infection: Qualifiers: Hematuria presence: without hematuria Urinary tract infection type: acute cystitis Qualified Code(s): N30.00 - Acute cystitis without hematuria Code(s): N39.0 - Urinary tract infection, site not specified Status: Acute (2) Right ureteral stone: Code(s): N20.1 - Calculus of ureter Status: Acute Assessment and Plan: Given how well she feels and normalization of serum white blood cell count, I would feel comfortable with discharge on Cefdinir 300mg bid for 10 days despite the fact that her urine culture is not totally complete. Patient has an appointment to follow-up next week with a repeat CT scan to determine stone position and arrange appropriate intervention Subjective Subjective Date/Time Seen: 03/14/24 12:37 Interval history: No complaints, tolerating stent Review of Systems Cardiovascular: Cardiovascular: Denies chest pain, Denies lightheadedness, Denies palpitations and Denies dyspnea Respiratory: Respiratory: Denies dyspnea Gastrointestinal: Gastrointestinal: Denies diarrhea, Denies nausea and Denies vomiting Genitourinary: Genitourinary: Denies hematuria and Denies dysuria Endocrine: Endocrine: Denies palpitations Exam Const: General: no acute distress Resp: Effort & Inspection: normal respiratory effort GI: Inspection: non-distended GI Palp: No abdominal tenderness and No Guarding due to palpation present (GI) Auscultation: normal bowel sounds Objective Data Vital Signs Vital Signs: Vital Signs - 24 hr 03/13/24 16:00 03/13/24 21:52 03/14/24 06:00 Temperature 97.7 F 97.8 F 98.2 F Pulse Rate 93 93 95 Respiratory Rate 16 14 14 Blood Pressure 121/72 117/64 111/64 Pulse Oximetry 98 98 96 Intake/Output Intake/Output: Intake & Output 03/11/24 03/12/24 03/13/24 03/14/24 23:59 23:59 23:59 23:59 Intake Total 2750 950 820 Output Total 6 Balance 2750 944 820 Meds/Results Medications: Active Medications Generic Name Dose Route Start Last Admin Trade Name Freq PRN Reason Stop Dose Admin Hydromorphone HCl 0.25 mg 03/12/24 18:38 Hydromorphone Hcl Inj (*Crx) 1 Mg/Ml Syr IV PUSH Q3H PRN Pain Rated 7-10 Hyoscyamine 0.125 mg 03/14/24 08:48 Hyoscyamine Sulfate 0.125 Mg Tablet PO Q4H PRN Bladder Spasm Ceftriaxone Sodium 1 gm in 50 mls @ 100 mls/hr 03/13/24 12:00 03/13/24 12:32 Rocephin 1 Gm/Ns 50 Ml IVPB Infused Q24H IVONE Infusion Ketorolac Tromethamine 15 mg 03/12/24 22:57 Ketorolac 15 Mg/Ml Vial (*Bkc) IV PUSH Q6H PRN Pain Rated 4-6 and Fever Oxycodone HCl 5 mg 03/12/24 18:37 03/13/24 17:07 Oxycodone Hcl (*Crx) 5 Mg Tab Ir PO 5 mg Q4H PRN Administration Pain Rated 7-10 Phenazopyridine HCl 100 mg 03/12/24 18:32 03/14/24 09:10 Phenazopyridine Hcl 100 Mg Tablet PO 100 mg Q8HR PRN Administration Mild Pain (1-3) Tamsulosin HCl 0.4 mg 03/12/24 21:00 03/13/24 21:16 Tamsulosin Hcl 0.4 Mg Capsule PO 0.4 mg QHS IVONE Administration Radiology Results: ITS Impressions Abdomen/Pelvis CT 03/12/24 13:25 IMPRESSION: 1. 3 mm possible right ureteral stone with mild right hydronephrosis. Retrograde Pyelogram 03/12/24 16:57 IMPRESSION: 1. Right internal ureteral stent in expected position. Labs Labs: Laboratory Results - last 24 hr 03/14/24 05:25 WBC 6.4 RBC 4.09 L Hgb 12.3 Hct 36.7 L MCV 89.7 MCH 30.1 MCHC 33.5 RDW 12.3 Plt Count 228 MPV 9.8 Immature Gran % (Auto) 0.5 Neut % (Auto) 60.3 Lymph % (Auto) 26.7 [place] % (Auto) 10.8 H Eos % (Auto) 1.4 Baso % (Auto) 0.3 Lymph # (Auto) 1.70 [place] # (Auto) 0.7 H Eos # (Auto) 0.1 Baso # (Auto) 0.0 Abs Immat Gran (auto) 0.03 Absolute Neuts (auto) 3.8 Absolute Nucleated RBC 0.000 Nucleated RBC % 0.0 Sodium 137 Potassium 3.5 Chloride 102 Carbon Dioxide 24
--- NOTE | 2024-03-14 12:52 | PM.DS ---
DS: Admitting Diagnosis Discharge Date 03/14/2024 Admitting Diagnosis Flank pain DS: Discharge Diagnosis Discharge Diagnosis (1) Sepsis: Qualifiers: Sepsis type: sepsis due to unspecified organism Sepsis acute organ dysfunction status: without acute organ dysfunction Qualified Code(s): A41.9 - Sepsis, unspecified organism Code(s): A41.9 - Sepsis, unspecified organism Status: Acute (2) Right ureteral stone: Code(s): N20.1 - Calculus of ureter Status: Acute (3) Urinary tract infection: Qualifiers: Hematuria presence: without hematuria Urinary tract infection type: acute cystitis Qualified Code(s): N30.00 - Acute cystitis without hematuria Code(s): N39.0 - Urinary tract infection, site not specified Status: Acute DS: Summary Hospital Course Hospital Course: 23 y/o F presents here with flank pain and abdominal pain with no significant PMH. The patient presents here from home for further evaluation of right-sided abdominal pain and right-sided flank pain. The patient reports onset of right-sided flank began last night and RLQ abdominal pain started this morning. She describes the pain as sharp/stabbing, nonradiating, constant flank pain, intermittent abdominal pain, and no aggravating/alleviating factors. Pain is accompanied by nausea with a few episodes of emesis, nonbloody. Denies associated diarrhea, dysuria, hematuria, urinary frequency, fever, chills, body aches, or constipation. Denies previous history of abdominal surgeries or kidney stones. Initial VS at presentation: 97.9? F, HR 114, RR 16, 138/82, and 100% on RA ED workup showed: WBC 17.2, hemoglobin 15.4, creatinine 0.8 and GFR >60, UA consistent with UTI. CT of the abdomen/pelvis showed a 3 mm possible right ureteral stone with mild right hydronephrosis. # Sepsis: - meets SIRS criteria: HR, WBC. No hypotension or evidence of organ dysfunction. received ivf resuscitation likely source uti on ceftraixone cutluers growing E coli sensitive to pending Will switch to cefdinir for 10 more days # Right ureteral stone: - CT showing a possible 3 mm right ureteral stone with mild right hydronephrosis - urology consulted, provided the following recs: Underwent cystoscopy and right ureteral stent placed Will need definitive stone management at later date - diet resumed post procedure # Urinary tract infection: - UA: Cloudy, 1+ blood, positive nitrates, 3+ leuks, 6-10 RBC, 51-100 WBC, 4+ bacteria, no epithelial cells - UC pending - previous micro reviewed, no previous available - started on Ceftriaxone on 03/12 # Diet: Regular # GI Prophylaxis: Not currently indicated # DVT Prophylaxis: Low risk # Lines: Peripheral # Code Status: Full code Time Spent with Patient Time attestation: Total time spent providing and/or coordinating discharge services: 34 mins Exam Narrative: General: Awake, alert, comfortable, no acute distress HEENT: Normocephalic, atraumatic, sclerae anicteric Respiratory: Normal respiratory effort, no accessory muscle use Abdomen: Nondistended, soft, mild tenderness on right lumbar area Skin: Normal coloration, warm and dry Neurologic: No focal neuro deficits noted Psychiatric: Appropriate mood and affect, judgment and insight intact DS: Data Data Completed and Pending Labs on day of discharge: Labs from last 24 hours 03/14/24 05:25 WBC 6.4 RBC 4.09 L Hgb 12.3 Hct 36.7 L MCV 89.7 MCH 30.1 MCHC 33.5 RDW 12.3 Plt Count 228 MPV 9.8 Immature Gran % (Auto) 0.5 Neut % (Auto) 60.3 Lymph % (Auto) 26.7 [place] % (Auto) 10.8 H Eos % (Auto) 1.4 Baso % (Auto) 0.3 Lymph # (Auto) 1.70 [place] # (Auto) 0.7 H Eos # (Auto) 0.1 Baso # (Auto) 0.0 Abs Immat Gran (auto) 0.03 Absolute Neuts (auto) 3.8 Absolute Nucleated RBC 0.000 Nucleated RBC % 0.0 Sodium 137 Potassium 3.5 Chloride 102 Carbon Dioxide 24 Anion Gap 11 BUN 6 L Creati
--- NOTE | 2024-03-14 17:16 | PC.NURSE ---
Patient called stating that the Flomax is out of stock at [facility] in [place]. This RN called [facility] in [place] to verify stock and pharmacist noted they have Flomax 0.4 mg capsules in stock. Medication electronically transmitted to [facility] in [place]. This RN notified patient of transfer of script as well as pharmacy closing at 6pm. Patient voiced understanding.
== END 2024-03-14 13:30 | disposition home or self-care (01) | DRG 854 ==
LOC: ANHED 15:56 → ANH3MEDSUR 18:10
PROVIDERS: Student in an Organized Health Care Education/Training Program; Urology; Admitting Provider Family Medicine; Emergency Provider Emergency Medicine; Visit Provider Internal Medicine
PROC: 0T768DZ Dilation of Right Ureter with Intraluminal Device, Via Natural or Artificial Opening Endoscopic (ICD-10-PCS; CPT 52352; principal; 2024-03-12 17:00)
DX: A41.9 Sepsis, unspecified organism (principal); N13.6 Pyonephrosis; F17.290 Nicotine dependence, other tobacco product, uncomplicated
CPT/HCPCS: 36415; 74177; 74420; 80048; 80053; 81001; 81025; 83690; 83735; 84145; 85025; 87040; 87077; 87086; 87088; 87186; 96361; 96365; 99285; A9270; C1758; C1769; C2617; J0696; J1100; J2250; J2405; J2704; J3010; J7030; J7120; Q9966; Q9967

== ENCOUNTER 2024-03-20 10:44 | Outpatient (CLI) | payer BC, SELFPAY ==
--- NOTE | ~2024-03-20 | CT_ITS ---
EXAMINATION: CT abdomen pelvis wo con DATE: 03/20/2024 11:01 INDICATION: Kidney stones. TECHNIQUE: Computed tomography (CT) of the abdomen and pelvis was performed without intravenous contr ast. Automated exposure control and iterative reconstruction technique were employed. The dose-length product was 227.46 mGy-cm. COMPARISON: CT abdomen and pelvis 03/12/2024 FINDINGS: The visualized portions of the lung bases demonstrate minimal atelectasis on the left. No p leural effusion. The heart size is normal. No pericardial effusion. The liver, gallbladder, spleen, p ancreas, adrenal glands, and left kidney are normal. There is mild right hydronephrosis. There is a 2 mm stone in proximal right ureter. There is a right internal ureteral stent in expected position. Th ere are no dilated loops of bowel. The appendix is normal. There are no pathologically enlarged lymph nodes. There is no free intraperitoneal fluid. The bones are unremarkable. IMPRESSION: 1. 2 mm stone in proximal right ureter with mild right hydronephrosis and right internal ureteral brett nt in expected position. Reviewed, dictated and finalized at location A. IMPRESSION: 1. 2 mm stone in proximal right ureter with mild right hydronephrosis and right internal ureteral stent in expected position.
== END 2024-03-20 10:45 | disposition home or self-care (01) ==
PROVIDERS: Visit Provider Urology
DX: N20.0 Calculus of kidney (principal); N20.1 Calculus of ureter
CPT/HCPCS: 74176